=== PATIENT | male | born 1995 | race Caucasian/White ===

== ENCOUNTER 2021-01-16 12:22 | Emergency (ER) | payer OTHER ==
[2021-01-16 12:44] LABS: BASOPHIL 1.3 % (0-2); EOSINOPHIL 4.4 % (0-5); HCT 38.4 % (42.0-52.0); HGB 13.2 g/dl (13.2-18.0); LYMPHOCYTE 39.6 % (15-48); MCH 30.6 pg (25.0-31.0); MCHC 34.4 g/dL (32.0-36.0); MCV 88.9 fL (78.0-100.0); MONOCYTE 7.1 % (0-12); MPV 10.8 fL (6.0-9.5); NEUTROPHIL 47.5 % (41-80); NRBC 0; PLT 257 K/uL (150-400); RBC 4.32 M/uL (4.70-6.00); RDW 12.2 % (11.5-14.0); WBC 7.2 K/uL (4.0-10.5)
[2021-01-16 12:51] LABS: INR 1.22 (0.9-1.2); PROTHROMBIN TIME 14.6 SECONDS (11.4-13.6); PTT 26.9 SECONDS (22.2-34.7)
[2021-01-16 12:57] LABS: ALBUMIN 3.6 g/dL (3.4-5.0); BILIRUBIN - TOTAL 0.5 mg/dL (0.2-1.0); BUN/CREAT RATIO (CALC) 12.9 RATIO; CREATININE 1.01 mg/dL (0.67-1.17); GLOBULIN (CALCULATION) 3.7 g/dL; POTASSIUM 3.6 mmol/L (3.5-5.1); TOTAL PROTEIN 7.3 g/dL (6.4-8.2)
[2021-01-16 13:20] LABS: LACTIC ACID 1.2 mmol/L (0.4-1.9)
[2021-01-16 15:08] LABS: BILIRUBIN NEGATIVE (NEGATIVE); BLOOD NEGATIVE Ery/uL (NEGATIVE); CLARITY CLEAR (CLEAR); COLOR YELLOW (YELLOW); GLUCOSE (U) NORMAL (NORMAL); LEUKOCYTES NEGATIVE Leu/uL (NEGATIVE); NITRITE NEGATIVE (NEGATIVE); PROTEIN NEGATIVE (NEGATIVE); SPECIFIC GRAVITY >=1.030 (1.001-1.030); UROBILINOGEN 0.2 mg/dL (0.2-1.0); pH 5.5 (5.0-9.0)
[2021-01-16] MEDS ORDERED: CARAFATE1 GM PO (16:34)
[2021-01-16] MEDS ORDERED: PEPCID AC20 MG PO (16:34)
[2021-01-16] MEDS ORDERED: ONDANSETRON ODT4 MG PO (16:34)
[2021-01-31] MEDS ORDERED: PROTONIX 40MG T40 MG PO (12:09)
== END 2021-01-16 17:08 | disposition home or self-care (01) ==
LOC: FER 12:22
PROVIDERS: Emergency Medicine
DX: K92.0 Hematemesis (principal)
CPT/HCPCS: 36415; 71045; 71250; 80053; 81003; 83605; 83690; 85025; 85610; 85730; 86850; 86900; 86901; C9113

== ENCOUNTER → 2021-01-31 | Day surgery (SDC) | payer OTHER ==
[~2021-01-31] MED LIST: CARAFATE1 GM PO; ONDANSETRON ODT4 MG PO; PEPCID AC20 MG PO; PROTONIX 40MG T40 MG PO
== END | disposition home or self-care (01) ==
LOC: FAS 09:37
DX: K22.2 Esophageal obstruction (principal); K22.10 Ulcer of esophagus without bleeding; K29.50 Unspecified chronic gastritis without bleeding; Z20.822 Contact with and (suspected) exposure to COVID-19; Z88.0 Allergy status to penicillin; Z98.890 Other specified postprocedural states
CPT/HCPCS: J2250; J2704; J7120